=== PATIENT | male | born 1995 | race Caucasian/White ===

== ENCOUNTER 2020-11-14 11:38 | Emergency (ER) | payer OTHER, BC ==
[~2020-11-14] VITALS: Ht 170.2 cm; Wt 74.4 kg
[~2020-11-14 11:38] MED LIST: IBUPROFEN600 MG PO
[2020-11-14] MEDS ORDERED: ONDANSETRON ODT8 MG PO (13:34)
== END 2020-11-14 13:42 | disposition home or self-care (01) ==
LOC: ED 11:38
DX: S06.0X1A Concussion with loss of consciousness of 30 minutes or less, initial encounter (principal); V80.010A Animal-rider injured by fall from or being thrown from horse in noncollision accident, initial encounter
CPT/HCPCS: 70450; 99284-25

== ENCOUNTER 2021-01-26 19:38 | Emergency (ER) | payer BC ==
[~2021-01-26] VITALS: Ht 170.2 cm; Wt 74.4 kg
[~2021-01-26 19:38] MED LIST changes: +ONDANSETRON ODT8 MG PO
== END 2021-01-26 21:15 | disposition home or self-care (01) ==
LOC: ED 19:38
DX: S43.102A Unspecified dislocation of left acromioclavicular joint, initial encounter (principal); V80.010A Animal-rider injured by fall from or being thrown from horse in noncollision accident, initial encounter; Z88.2 Allergy status to sulfonamides
CPT/HCPCS: 73030; 99283-25

== ENCOUNTER 2021-04-19 14:41 | Emergency (ER) | payer OTHER, BC ==
[~2021-04-19] VITALS: Ht 170.2 cm; Wt 74.4 kg
== END 2021-04-19 20:10 | disposition home or self-care (01) ==
LOC: ED 14:41
DX: M25.461 Effusion, right knee (principal); Z88.2 Allergy status to sulfonamides
CPT/HCPCS: 73560; 99283

== ENCOUNTER 2021-06-06 15:27 | Emergency (ER) | payer OTHER, BC ==
[~2021-06-06] VITALS: Ht 170.2 cm; Wt 74.4 kg
== END 2021-06-06 21:24 | disposition home or self-care (01) ==
LOC: ED 15:27
DX: S06.0X0A Concussion without loss of consciousness, initial encounter (principal); Z88.2 Allergy status to sulfonamides; V43.52XA Car driver injured in collision with other type car in traffic accident, initial encounter
CPT/HCPCS: 70450; 99283-25

== ENCOUNTER 2025-06-22 23:25 | Emergency (ER) | payer OTHER ==
[~2025-06-22] VITALS: Ht 170.2 cm; Wt 82.2 kg
[2025-06-23 01:13] VITALS: BP 138/91
== END 2025-06-23 01:18 | disposition home or self-care (01) ==
LOC: ED 23:25
DX: S06.0X0A Concussion without loss of consciousness, initial encounter (principal); S00.83XA Contusion of other part of head, initial encounter; V49.9XXA Car occupant (driver) (passenger) injured in unspecified traffic accident, initial encounter; Z88.2 Allergy status to sulfonamides
CPT/HCPCS: 70450; 72125; 99284-25